=== PATIENT | female | born 1995 | race Caucasian/White ===

== ENCOUNTER 2020-12-28 08:19 | Emergency (ER) | payer BC ==
[~2020-12-28] VITALS: Ht 152.4 cm; Wt 94.6 kg
[2020-12-28] MEDS ORDERED: PERI12LIQ (08:32)
[2020-12-28] MEDS ORDERED: IBUP200C25 PO (08:32)
[2020-12-28] MEDS ORDERED: ACET-907 PO (08:32)
[2020-12-28] MEDS ORDERED: AMOX500C PO (08:32)
[2020-12-28 12:11] VITALS: BP 119/84
[2020-12-28] MEDS ORDERED: AUGM875T28 PO (12:16)
== END 2020-12-28 12:24 | disposition home or self-care (01) ==
LOC: M ED 08:19
DX: K04.7 Periapical abscess without sinus (principal); K02.9 Dental caries, unspecified; F17.200 Nicotine dependence, unspecified, uncomplicated

== ENCOUNTER 2021-05-22 10:04 | Emergency (ER) | payer OTHER ==
[~2021-05-22] VITALS: Ht 152.4 cm; Wt 90.9 kg
[~2021-05-22 10:04] MED LIST: ACET-907 PO; AMOX500C PO; AUGM875T28 PO; IBUP200C25 PO; OMEP40CA4 PO; PERI12LIQ
[2021-05-22] MEDS ORDERED: ACET32TAB PO (10:18)
[2021-05-22] MEDS ORDERED: ACETAMINOPHEN 500 MG TAB PO ONE (11:05)
[2021-05-22 11:45] VITALS: BP 111/66
== END 2021-05-22 12:00 | disposition home or self-care (01) ==
LOC: M ED 10:04
DX: S93.402A Sprain of unspecified ligament of left ankle, initial encounter (principal); W19.XXXA Unspecified fall, initial encounter; Y92.009 Unspecified place in unspecified non-institutional (private) residence as the place of occurrence of the external cause; Y93.9 Activity, unspecified; Y99.9 Unspecified external cause status